=== PATIENT | male | born 1950 | race Hispanic/Latino ===

== ENCOUNTER → 2018-10-23 | Outpatient (CLI) | payer MEDICARE | END | disposition home or self-care (01) | LOC: RAH 09:52 | PROVIDERS: ATTEND Internal Medicine | DX: I70.0 Atherosclerosis of aorta (principal); Z87.891 Personal history of nicotine dependence | CPT/HCPCS: 76775 ==

== ENCOUNTER → 2020-05-12 | Outpatient (CLI) | payer MEDICARE | END | disposition home or self-care (01) | LOC: RAH 15:40 | PROVIDERS: ATTEND Internal Medicine | DX: M25.552 Pain in left hip (principal); M51.36 Other intervertebral disc degeneration, lumbar region; I87.8 Other specified disorders of veins; M25.562 Pain in left knee | CPT/HCPCS: 73502; 73562 ==

== ENCOUNTER → 2022-12-17 | Outpatient (CLI) | payer MEDICARE | END | disposition home or self-care (01) | LOC: RAH 10:29 | PROVIDERS: ATTEND Internal Medicine | DX: I86.1 Scrotal varices (principal); N43.3 Hydrocele, unspecified; N50.812 Left testicular pain | CPT/HCPCS: 76870 ==